=== PATIENT | male | born 1965 | race African-American/Black ===

== ENCOUNTER 2017-05-24 12:30 | Emergency (ER) | payer SELFPAY ==
[2017-05-24] MEDS ORDERED: MAG HYDROX/AL HYDROX/SIMETH 30 ML, Lidocaine 2%Visc 15ml 20 MG, PHENobarb/HYOSCY/ATROPI... PO ONE ×3 (13:05)
[2017-05-24] MEDS ORDERED: Lidocaine 2%Visc 15ml 20 MG/ML UDC ONE (13:06)
[2017-05-24] MEDS ORDERED: MAG HYDROX/AL HYDROX/SIMETH 30 ML UDC PO ONE (13:06)
--- NOTE | 2017-05-24 13:07 | ED Physician Documentation ---
Sore Throat/Dental Pain - HISTORIAN Historian: patient - HPI Stated Complaint: Lodged vitamin Chief Complaint: Sore Throat Additional Information: pt swallowed vitamin approx 2 hrs ago has feeling vit stuck back throat. has swallowed bread fluids etc w/o difficulty since. feelingstill there -no sliva regurg no breathing difficulty Onset: hours (2) Associated Symptoms: sore throat, mild. denies: fever, chills, unable to swallow, runny nose, congestion - ROS CONST: no problems CVS/RESP: none. denies: chest pain, shortness of breath, palpitations NEURO/PSYCH: none. denies: anxiety, depression - PAST HX Past History: other Other History: none Immunizations: UTD Allergies/Adverse Reactions: Allergies Allergy/AdvReac Type Severity Reaction Status Date / Time No Known Allergies Allergy Verified 05/24/17 12:45 Home Medications: Ambulatory Orders Medication Instructions Recorded NK [NK] 05/24/17 - SOCIAL HX Smoking History: cigarettes Alcohol Use: none Drug Use: none - FAMILY HX Family History: No - VITAL SIGNS Vital Signs: Vital Signs Temp Pulse Resp BP Pulse Ox 96.4 F L 103 H 20 158/112 96 05/24/17 12:35 05/24/17 12:35 05/24/17 12:35 05/24/17 12:35 05/24/17 12:35 - REVIEWED ASSESSMENTS Nursing Assessment Reviewed: Yes Vitals Reviewed: Yes ED Results Lab/Radiology - Orders Orders: ED Orders Category Date Time Status Lidocaine 2%Visc 15ml [Xylocaine] Med 05/24/17 13:06 Discontinued 600 mg .ROUTE .STK-MED ONE Mag Hydrox/Al Hydrox/Simeth [Mylanta] Med 05/24/17 13:06 Discontinued 30 ml PO .STK-MED ONE Mag Hydrox/Al Hydrox/Simeth [Mylanta] 30 ml Med 05/24/17 13:05 Discontinued Lidocaine 2%Visc 15ml [Xylocaine] 20 mg PHENobarb/HYOSCY/ATROPINE/SCOP [] 10 ml PO NOW Sore throat Physical Exam - EXAM General Appearance: mild distress Head/Neck: head nml inspection Eyes: eyes nml inspection, PERRL Mouth/Throat: lips nml, gums nml, pharynx nml, voice nml, no drooling, membranes nml. No: no air way problems, no thrush, dental tenderness, gum swelling around teeth Ear/Nose: nml inspection Respiratory: no resp. distress, breath sounds nml, respiratory distress CVS: reg. rate & rhythm, heart sounds nml Abdomen: soft, non-tender Extremities: non-tender, nml ROM Skin: warm/dry, normal color. No: cyanosis, diaphoresis, jaundice, mottled Neuro/Psych: oriented x3, mood/affect nml. No: disoriented Discharge Clincal Impression: throat forieghn body Comments: feeling of lodged vitaminin throat---appears just scratchesd-better after gi coctail pt to RTED PRN sy worsen Condition: Good Disposition: 01 HOME, SELF-CARE Decision to Admit: NO Decision Time: 13:38
[2017-05-24 14:03] VITALS: BP 150/82
== END 2017-05-24 13:35 | disposition home or self-care (01) ==
LOC: ED 12:30
DX: R09.89 Other specified symptoms and signs involving the circulatory and respiratory systems (principal)
CPT/HCPCS: 99283; A9270-GY

== ENCOUNTER 2017-06-05 00:14 | Emergency (ER) | payer SELFPAY ==
[2017-06-05 00:21] VITALS: BP 150/86
--- NOTE | 2017-06-05 00:24 | ED Physician Documentation ---
Facial/Scalp Injury - HPI Stated Complaint: fell striking face on bricks Chief Complaint: Facial Injury Additional Information: struck face on cement wall. .5cm lac to bridge of nose, 1.2cm lac below left eye. No LOC Onset: just prior to arrival Timing: still present Duration: constant Context: fall Severity: mild Further Comments: no - ROS CONST: no problems CVS/RESP: none EYES/ENT: none GI/: none NEURO/PSYCH: denies: fainting, dizziness MS/SKIN/LYMPH: none - PAST HX Past History: none Medications: see nurse note Allergies: NKDA - SOCIAL HX Smoking History: non-smoker Alcohol Use: none Drug Use: none - FAMILY HX Family History: No - VITAL SIGNS Vital Signs: Vital Signs Temp Pulse Resp BP Pulse Ox 91 H 16 150/86 98 06/05/17 00:15 06/05/17 00:15 06/05/17 00:15 06/05/17 00:15 - REVIEWED ASSESSMENT Nursing Assessment Reviewed: Yes Vitals Reviewed: Yes Procedures Wound Location: face Wound's Depth, Shape: superficial, linear Wound Explored: no foreign body removed Irrigated w/ Saline (ccs): 15 Wound Repaired With: Dermabond Layer Closure?: No Sterile Dressing Applied?: No Splint Applied?: No Progress: he has a linear laceration below lower eye lid, that has good edge approx and no bleeding, will close with derma arias, he has a somewhat stellate laceration to bridge of nose, that is not bleeding, will close with dermabond, he has a linear laceration from the medial canthus of the left eye, running inferior laterally. not bleeding, but is too close to the eye to effectively evaluate, and is close to the lacrimal duct. Too close to the eye to try to close. will send to opthamologist in AM. Facial Injury Physical Exam - Physical Exam General Appearance: no acute distress, alert Head: trauma (5mm lac to bridge of nose, 1.5cm lac beloe left eye. good hemostasis) Neck: non-tender Nexus Criteria: Nexus criteria neg Eye: lids nml, conjunctivae nml, PERRL, EOMI ENT: nml external exam Neuro/Psych: oriented x3, CN's nml as tested, sensation nml, motor nml, mood/ affect nml Respiratory: chest non-tender CVS: reg. rate & rhythm Abdomen: non-tender Skin: other (as above) Extremities: non-tender Discharge Clincal Impression: Contusion of nose, initial encounter Laceration of face Qualifiers: Encounter type: initial encounter Qualified Code(s): S01.81XA - Laceration without foreign body of other part of head, initial encounter Laceration of nose without complication Qualifiers: Encounter type: initial encounter Qualified Code(s): S01.21XA - Laceration without foreign body of nose, initial encounter Referrals: Primary Doctor,No [Primary Care Provider] - 2 Days Condition: Stable Disposition: 01 HOME, SELF-CARE Decision to Admit: NO Date of Decison to Admit: 06/05/17 Decision Time: 00:48
[2017-06-05] MEDS ORDERED: TETANUS IMMUNE GLOBULIN/PF 250 UNIT DISP.SYRIN IM PRN (00:48)
[2017-06-05] MEDS ORDERED: ACETAMINOPHEN 325 MG TABLET PO ONE (00:49)
[2017-06-05] MEDS ORDERED: DIPH,PERTUSS(ACELL),TET VAC/PF 0.5 ML DISP.SYRIN IM ONE (00:56)
== END 2017-06-05 01:05 | disposition home or self-care (01) ==
LOC: ED 00:14
DX: S01.81XA Laceration without foreign body of other part of head, initial encounter (principal); S01.21XA Laceration without foreign body of nose, initial encounter; X58.XXXA Exposure to other specified factors, initial encounter; Y93.9 Activity, unspecified; Y99.9 Unspecified external cause status
CPT/HCPCS: 12011; 90471; 90715; 99283